=== PATIENT | male | born 1945 ===

== ENCOUNTER 2017-09-28 16:09 | Emergency (ER) | payer OTHER, MEDICARE ==
[2017-09-28] MEDS ORDERED: Phenylephrine 1% NASAL* 15 ML BOT BOTH NARES ONE (16:30)
[2017-09-28] MEDS ORDERED: NS 0.9% 1000 ML* 1,000 ML IV ONE (16:30)
[2017-09-28] MEDS ORDERED: Silver Nitrate/Potassium Nitr* 1 EA STICK TOPICAL ONE (16:30)
--- NOTE | 2017-09-28 17:00 | UC ---
Safia Mckenzie Nilda, scribed for Maria Elena Sellers MD on 09/28/17 at 1636 . Epistaxis Nasal HPI - HPI Summary HPI Summary: This patient is a 72 year old M presenting to [facility] [place] with a chief complaint of constant heavy L-sided epistaxis for the past 1.5 hours. Pt states hed often have epistaxis in the past and had cauterizations in nares years ago - Dr. Hartman. . Last episode of epistaxis was mild and occurred earlier this week. The patient rates the pain 0/10 in severity. Symptoms aggravated and alleviated by nothing including applying pressure and packing nose with Afrin and sponges. Pt states he feels he is still bleeding around the packing and has blood in the back of his throat. Patient reports mild lightheadedness and post nasal drip, but denies LEE and vision changes. Pt denies medications including anticoagulant and HTN medications. Pt states he should currently be on BP medications. Patients medication reviewed this visit. - History of Current Complaint Chief Complaint: UCGeneralIllness Stated Complaint: NOSE BLEED Time Seen by Provider: 09/28/17 16:24 Hx Obtained From: Patient Onset/Duration: Sudden Onset, Lasting Hours, Still Present Timing: Constant Severity Currently: Severe Pain Intensity: 0 Pain Scale Used: 0-10 Numeric Character: Heavy Aggravating Factor(s): Nothing Alleviating Factor(s): Nothing Associated Signs And Symptoms: Positive: Negative - Allergies/Home Medications Allergies/Adverse Reactions: Allergies Allergy/AdvReac Type Severity Reaction Status Date / Time pollen extracts Allergy Unknown Verified 09/28/17 16:26 Reaction Details erythromycin base AdvReac Nausea And Verified 09/28/17 17:43 Vomiting Dust Allergy Unknown Uncoded 09/28/17 16:26 Reaction Details Home Medications: Home Medications Omeprazole 20 mg PO DAILY 09/28/17 [History Confirmed 09/28/17] PMH/Surg Hx/FS Hx/Imm Hx Previously Healthy: Yes Cardiovascular History: Hypertension GI/ History: Ulcer - Surgical History Surgery Procedure, Year, and Place: Aneursym R leg 10 years ago - Family History Known Family History: Positive: Hypertension, Diabetes - Social History Occupation: Retired Lives: With Family Alcohol Use: Occasionally Substance Use Type: None Smoking Status (MU): Never Smoked Tobacco Review of Systems Constitutional: Negative Eyes: Other - negative vision changes ENT: Epistaxis Neurological: Other - mild lightheadedness; negative LEE All Other Systems Reviewed And Are Negative: Yes Physical Exam Triage Information Reviewed: Yes Appearance: Well-Appearing, No Pain Distress, Well-Nourished Vital Signs: Initial Vital Signs Temp 97.5 F 09/28/17 16:17 Pulse 124 09/28/17 16:17 Resp 18 09/28/17 16:17 BP 155/96 09/28/17 16:17 Pulse Ox 98 09/28/17 16:17 Eyes: Positive: Conjunctiva Clear ENT: Positive: TMs normal, Other - Pt with packing b/l nares with oozing BRB left nares blood in posterior pharynx Dental Exam: Normal Neck exam: Normal Neck: Positive: Supple, Nontender, No Lymphadenopathy Respiratory: Positive: Lungs clear, Normal breath sounds, No respiratory distress, No accessory muscle use Cardiovascular: Positive: RRR - tachy Abdominal Exam: Normal Abdomen Description: Positive: Nontender, No Organomegaly, Soft Bowel Sounds: Positive: Present Musculoskeletal Exam: Normal Musculoskeletal: Positive: Strength Intact, ROM Intact Neurological Exam: Normal Neurological: Positive: Alert Psychological Exam: Normal Psychological: Positive: Normal Response To Family Skin Exam: Normal Procedures - Procedure Summary Procedure Summary: Removed pt placed packing from bilateral nares - sizeable clot removed with packing. No active bleeding. Site of recent bleed not readily visible. Gulshan- Synephrine placed each side. Merisol packing placed left nare. Pt tolerated well. no active bleeding Re-Evaluation - Re-Evaluation First Eval Re-Evaluation Time: 17:32 Comment: Pt feels better. He is no longer lightheaded. Pt tolerated PO. No recurrent bleeding. Vitals signs improved. No complaints. no recurrent bleeding. will discharge with packing and keflex. pt will call ENT for packing removal. return precautions discussed. pt comfortable and in agreement with plan Epistaxis Nasal Course/Dx - Course Course Of Treatment: Blood pressure noted and patient informed to follow up with PCP. Pt with epistaxis L>R nares x 90 minutes. Packing placed by pt. pt with mild lightheadedness and noted to be tachycardiac at triage. Matheus place IV. NS. remove packing, inspect - cauterize if able. pack. if unable to control may need ED transfer - pt comfortable and in agreement with plan - Differential Dx/Diagnosis Provider Diagnoses: epistaxis Discharge - Sign-Out/Discharge Documenting (check all that apply): Discharge - Discharge Plan Condition: Stable Disposition: HOME Prescriptions: Cephalexin CAP* [Keflex CAP*] 250 mg PO TID #9 cap Patient Education Materials: Nosebleed (ED) Referrals: Preston Hartman MD [Medical Doctor] - Bacilio Sampson MD [Medical Doctor] - Additional Instructions: - Take antibiotic as prescribed until your packing is removed - do Not blow, pick, or rub your nose - contact Dr. Hartman tomorrow to schedule removal of your nasal packing - If you start to bleed again, leave packing in place, apply direct pressure and go to the emergency department. It is recommended someone drive you or call 911 - Contact your doctor, return here, or go to the emergency department with any questions or concerns - Billing Disposition and Condition Condition: STABLE Disposition: HOME The documentation as recorded by the Safia underwood Nilda accurately reflects the service I personally performed and the decisions made by me, Maria Elena Sellers MD.
[2017-09-28 17:28] VITALS: BP 150/92
== END 2017-09-28 18:00 | disposition home or self-care (01) ==
LOC: UCEAST 16:09
DX: R04.0 Epistaxis (principal); R42 Dizziness and giddiness; R09.82 Postnasal drip; I10 Essential (primary) hypertension; Z88.1 Allergy status to other antibiotic agents
CPT/HCPCS: 30901; 99202; A9270-GY; G0463